=== PATIENT | male | born 1970 ===

== ENCOUNTER 2020-11-16 05:00 | Day surgery (SDC) | payer OTHER ==
[~2020-11-16 05:00] MED LIST: ZESTRIL10 M1 PO
== END 2020-11-16 10:15 | disposition home or self-care (01) ==
LOC: CIR.AMB 05:00
PROVIDERS: ATTEND Specialist
DX: L72.0 Epidermal cyst (principal); Z20.822 Contact with and (suspected) exposure to COVID-19